=== PATIENT | female | born 1960 | race African-American/Black ===

== ENCOUNTER → 2017-08-27 14:53 | Outpatient (CLI) | payer OTHER, SELFPAY ==
[2017-08-28 10:06] LABS: Vitamin B12 > 2000 pg/mL (211-911)
== END ==
PROVIDERS: Family Provider Nurse Practitioner; PCP Nurse Practitioner; Visit Provider Nurse Practitioner
DX: Z13.220 Encounter for screening for lipoid disorders (principal); D64.9 Anemia, unspecified; E55.9 Vitamin D deficiency, unspecified; E11.9 Type 2 diabetes mellitus without complications
CPT/HCPCS: 82607; 82746

== ENCOUNTER → 2017-08-27 16:02 | Outpatient (CLI) | payer OTHER, SELFPAY ==
--- NOTE | 2017-08-27 16:06 | HPBD_ITS ---
STUDY: DUAL ENERGY X-RAY ABSORPTIOMETRY / DXA REASON FOR EXAM: Female, 57 years old. The patient is postmenopausal. No loss of height. TECHNIQUE: Bone Mineral Density (BMD) measurements of lumbar spine and bilateral hips were obtained. COMPARISON: None. FINDINGS: Lumbar Spine (L1-L4): g/cm2 (1.410) / T-score (1.9) / Z-score (2.1) Findings are suggestive of normal bone density with a low fracture risk. Left Femur Total: g/cm2 (1.135) / T-score (1.0) / Z-score (0.7) Left Femoral Neck: g/cm2 (1.002) / T-score (-0.3) / Z-score (-0.1) Right Femur Total: g/cm2 (1.087) / T-score (0.6) / Z-score (0.4) Right Femoral Neck: g/cm2 (0.966) / T-score (-0.5) / Z-score (-0.4) HPBD/Dexa Bone Density Study (HP) IMPRESSION: The patient is considered normal as outlined below according to World [employer] Organization (WHO) criteria with a low fracture risk. Reference Information: The T-score is the number of standard deviations above or below the standard which is normal for young adults at their peak bone mineral density. The World Health Organization (WHO) interprets the T-scores as follows: Above -1 Normal bone density Between -1 and -2.5 Osteopenia Equal to / or below -2.5 Osteoporosis As a practical clinical guideline, osteopenia may be graded as follows: Mild -1 through -1.5 Moderate -1.6 through -2.0 Severe -2.1 through -2.4 The Z-score is the number of standard deviations above or below age-matched controls. A Z-score of less than -1.5 would be considered abnormal. References: 1. NIH Osteoporosis and Related Bone Diseases http://www.osteo.org 2. International Society for Clinical Densitometry http://www.iscd.org 3. National Osteoporosis Foundation http://www.nof.org Electronically Signed: Mickey Winchester MD at 10:42 EST Tel [phone], Service support ,
== END ==
PROVIDERS: Family Provider Nurse Practitioner; PCP Nurse Practitioner; Visit Provider Nurse Practitioner
DX: Z78.0 Asymptomatic menopausal state (principal)
CPT/HCPCS: 77080

== ENCOUNTER → 2018-02-14 08:38 | Outpatient (CLI) | payer OTHER, SELFPAY | PROVIDERS: Family Provider Nurse Practitioner; PCP Nurse Practitioner; Visit Provider Nurse Practitioner | DX: Z12.31 Encounter for screening mammogram for malignant neoplasm of breast (principal) | CPT/HCPCS: 77063; 77067 ==

== ENCOUNTER → 2018-05-09 12:00 | Outpatient (CLI) | payer OTHER, SELFPAY ==
--- NOTE | 2018-05-09 12:05 | RAD_ITS ---
STUDY: X-RAY - ABDOMEN/PELVIS REASON FOR EXAM: Female, 57 years old. 5 day history of diarrhea and abdominal bloating. TECHNIQUE: Two AP supine views of the abdomen and pelvis. COMPARISON: None. FINDINGS: Normal visualized lung bases. There is an abundance of fecal material throughout the colon. The visualized liver, spleen and kidneys are grossly normal in size and morphology. There are calcified phleboliths in the pelvis. Normal visualized osseous structures. RAD/Abdomen Single View IMPRESSION: Large amount of material is seen in the colon. Multiple calcified phleboliths within the pelvis. Electronically Signed: Mickey Winchester MD at 12:27 EST Tel [phone], Service support ,
== END ==
PROVIDERS: Family Provider Nurse Practitioner; PCP Nurse Practitioner; Referring Provider Nurse Practitioner; Visit Provider Nurse Practitioner
DX: R10.9 Unspecified abdominal pain (principal)
CPT/HCPCS: 74018

== ENCOUNTER → 2018-09-18 10:58 | Outpatient (CLI) | payer OTHER, SELFPAY ==
[2018-09-18 11:26] LABS: Vitamin B12 > 2000 pg/mL (211-911)
== END ==
PROVIDERS: Visit Provider Nurse Practitioner
DX: E11.9 Type 2 diabetes mellitus without complications (principal); E53.8 Deficiency of other specified B group vitamins; K58.9 Irritable bowel syndrome, unspecified
CPT/HCPCS: 82607; 82746; 83735

== ENCOUNTER → 2018-11-11 14:18 | Outpatient (CLI) | payer OTHER, SELFPAY ==
[2018-11-11 14:37] LABS: Absolute Lymphocyte Count 2.51 X10^3/ul (0.83-4.51); Absolute Neutrophil Count 1.9 X10^3/uL (2.0-7.7); Basophil# 0.03 X10^3/uL; Basophil% 0.6 % (0-1); Eosinophil# 0.15 X10^3/uL; Eosinophils% 3.1 % (0-5); Hematocrit 35.9 % (37-47); Hemoglobin 12.1 g/dl (12.0-15.0); Lymphocyte # 2.51 X10^3/ul (4.0); Lymphocyte % 51.4 % (19-41); Mean Corp Hgb Conc 33.7 g/gl (32-36); Mean Corpuscular Hgb 29.9 pg (27.0-32.0); Mean Corpuscular Volume 88.6 fL (81-99); Mean Platelet Vol. 10.8 fl (6.2-12.0); Monocyte% 6.1 % (0-10); Neutrophil # 1.88 X10^3/uL (2.7-7.7); Neutrophil % 38.6 % (47-70); Platelet Count 199 K/mm3 (150-450); RBC Distribution Width CV 12.9 % (11.6-14.6); RBC Distribution Width SD 41.7 fl (35.1-43.9); Red Blood Count 4.05 M/mm3 (4.2-5.4); White Blood Count 4.9 K/mm3 (4.4-11.0)
[2018-11-11 14:39] LABS: POSITIVE COUNT NO; POSITIVE DIFFERENTIAL NO; POSITIVE MORPHOLOGY NO
== END ==
PROVIDERS: Family Provider Nurse Practitioner; PCP Nurse Practitioner; Referring Provider Nurse Practitioner; Visit Provider Nurse Practitioner
DX: D72.819 Decreased white blood cell count, unspecified (principal)
CPT/HCPCS: 36415; 85025

== ENCOUNTER → 2018-12-08 11:43 | Outpatient (CLI) | payer OTHER, SELFPAY ==
[2018-12-08 11:57] LABS: Erythrocyte Sedimentation Rate 10 mm/hr (0-30)
[2018-12-08 12:12] LABS: CRP < 2.90 mg/L (0.0-3.0)
[2018-12-09 13:30] LABS: ANTINUCLEAR ANTIBODIES DIRECT Negative (Negative)
== END ==
PROVIDERS: Family Provider Nurse Practitioner; PCP Nurse Practitioner
DX: D72.9 Disorder of white blood cells, unspecified (principal)
CPT/HCPCS: 85652; 86038; 86140

== ENCOUNTER → 2018-12-31 08:22 | Outpatient (CLI) | payer OTHER, SELFPAY ==
[2018-12-31 08:44] LABS: Absolute Lymphocyte Count 1.86 X10^3/ul (0.83-4.51); Absolute Neutrophil Count 1.5 X10^3/uL (2.0-7.7); Basophil# 0.03 X10^3/uL; Basophil% 0.8 % (0-1); Eosinophil# 0.15 X10^3/uL; Eosinophils% 3.9 % (0-5); Hematocrit 38.3 % (37-47); Hemoglobin 13.1 g/dl (12.0-15.0); Lymphocyte # 1.86 X10^3/ul (4.0); Lymphocyte % 48.1 % (19-41); Mean Corp Hgb Conc 34.2 g/gl (32-36); Mean Corpuscular Hgb 30.3 pg (27.0-32.0); Mean Corpuscular Volume 88.7 fL (81-99); Mean Platelet Vol. 11.8 fl (6.2-12.0); Monocyte# 0.31 X10^3/uL; Neutrophil # 1.52 X10^3/uL (2.7-7.7); Neutrophil % 39.2 % (47-70); Platelet Count 199 K/mm3 (150-450); RBC Distribution Width SD 41.4 fl (35.1-43.9); Red Blood Count 4.32 M/mm3 (4.2-5.4); White Blood Count 3.9 K/mm3 (4.4-11.0)
[2018-12-31 08:45] LABS: POSITIVE COUNT NO; POSITIVE DIFFERENTIAL NO; POSITIVE MORPHOLOGY NO
[2018-12-31 09:02] LABS: Hemoglobin A1c 8.7 % (4.2-6.3)
[2018-12-31 09:07] LABS: AST(SGOT) 28 U/L (15-37); Alanine Aminotransfer ALT/SGPT 54 U/L (13-56); Albumin, Serum 4.1 g/dL (3.2-5.0); Alkaline Phosphatase 107 U/L (45-117); Amylase 52 U/L (25-115); Anion Gap 11 (5-15); BUN 18 mg/dL (7-18); BUN/Creat Ratio 17.6 RATIO (10-20); Calcium,Total 9.2 mg/dL (8.5-10.1); Chloride 105 mmol/L (98-107); Cholesterol 204 mg/dL (200); Creatinine, Serum 1.02 mg/dL (0.55-1.02); EST Glomerular Filtration Rate 59 mL/min (>60); Est Glom Filt Rate - Afr Amer 72 mL/min (>60); Globulin 4.2 g/dL (2.2-4.2); Glucose 219 mg/dL (74-106); High Density Lipoprotein 41 mg/dL; Lipase 117 U/L (73-393); Potassium 4.1 mmol/L (3.5-5.1); Protein, Total 8.3 g/dL (6.4-8.2); Sodium Level 141 mmol/L (136-145); Thyroid Stim Hormone (TSH) 1.71 uIU/mL (0.358-3.74); Triglycerides 157 mg/dL; Very Low Density Lipoprotein 31 mg/dL (5-40)
[2018-12-31 09:31] LABS: Microalbumin,Random Urine 10.2 mg/L (NO RANGE EST.)
== END ==
PROVIDERS: Family Provider Nurse Practitioner; PCP Nurse Practitioner
DX: E11.9 Type 2 diabetes mellitus without complications (principal); R10.84 Generalized abdominal pain
CPT/HCPCS: 36415; 80053; 80061; 82043; 82150; 82570; 83036; 83690; 84443; 85025

== ENCOUNTER → 2019-08-24 | Outpatient (CLI) | payer OTHER, SELFPAY ==
--- NOTE | 2019-08-24 07:18 | BI_ITS ---
MAMMOGRAPHY - BILATERAL SCREENING REASON FOR EXAM: Female, 59 years old. Routine annual screening examination. PERTINENT HISTORY: Family history of breast cancer BILATERAL DIGITAL MAMMOGRAM WITH TOMOSYNTHESIS: Mediolateraloblique and craniocaudal views demonstrate no evidence of dominant parenchymal masses. No cluster of microcalcifications or architectural distortion is seen. No evidence of skin thickening is identified. There has been no significant change since 02/14/2018. Breast Density: The breast tissue is extremely dense which may lower the sensitivity of mammography. CAD was used to assist in final assessment. IMPRESSION: NORMAL MAMMOGRAM BILATERALLY. FINAL ASSESSMENT: BIRAD 1 (NEGATIVE) YEARLY MAMMOGRAM RECOMMENDED Electronically Signed: Pedro Villanueva, at 16:56 EST Tel , Service support , BI/SCREEN MAMM (CAD) W/KRISTIAN ALLEN
== END | disposition home or self-care (01) ==
LOC: OPBI 07:17
PROVIDERS: PCP Nurse Practitioner; Referring Provider Nurse Practitioner; Visit Provider Nurse Practitioner
DX: Z12.31 Encounter for screening mammogram for malignant neoplasm of breast (principal)
CPT/HCPCS: 77063; 77067

== ENCOUNTER 2019-10-14 12:20 | Outpatient (RCR) | payer OTHER, SELFPAY | END 2019-10-29 23:59 | LOC: DC 12:20 | PROVIDERS: PCP Nurse Practitioner; Visit Provider Nurse Practitioner | DX: Z71.3 Dietary counseling and surveillance (principal); E11.65 Type 2 diabetes mellitus with hyperglycemia | CPT/HCPCS: 97802 ==

== ENCOUNTER 2019-11-17 17:24 | Outpatient (RCR) | payer OTHER, SELFPAY | END 2019-11-29 23:59 | LOC: DC 17:24 | PROVIDERS: PCP Nurse Practitioner; Visit Provider Nurse Practitioner | DX: Z71.3 Dietary counseling and surveillance (principal); E11.65 Type 2 diabetes mellitus with hyperglycemia | CPT/HCPCS: 97803 ==

== ENCOUNTER 2020-01-19 16:30 | Outpatient (RCR) | payer OTHER, SELFPAY | END 2020-01-29 23:59 | LOC: DC 16:30 | PROVIDERS: PCP Nurse Practitioner; Visit Provider Nurse Practitioner | DX: Z71.3 Dietary counseling and surveillance (principal); E11.65 Type 2 diabetes mellitus with hyperglycemia | CPT/HCPCS: 97803 ==

== ENCOUNTER 2020-02-17 16:24 | Outpatient (RCR) | payer OTHER, SELFPAY | END 2020-02-29 23:59 | LOC: DC 16:24 | PROVIDERS: PCP Nurse Practitioner; Visit Provider Nurse Practitioner | DX: Z71.3 Dietary counseling and surveillance (principal); E11.65 Type 2 diabetes mellitus with hyperglycemia | CPT/HCPCS: 97803 ==

== ENCOUNTER 2020-03-21 17:19 | Outpatient (RCR) | payer OTHER, SELFPAY | END 2020-03-30 23:59 | LOC: DC 17:19 | PROVIDERS: PCP Nurse Practitioner; Visit Provider Nurse Practitioner | DX: Z71.3 Dietary counseling and surveillance (principal); E11.65 Type 2 diabetes mellitus with hyperglycemia | CPT/HCPCS: 97803 ==

== ENCOUNTER 2020-05-16 16:03 | Outpatient (RCR) | payer OTHER, SELFPAY | END 2020-05-30 23:59 | LOC: DC 16:03 | PROVIDERS: PCP Nurse Practitioner; Visit Provider Nurse Practitioner | DX: Z71.3 Dietary counseling and surveillance (principal); E11.65 Type 2 diabetes mellitus with hyperglycemia | CPT/HCPCS: 97803 ==

== ENCOUNTER 2020-10-11 17:21 | Outpatient (RCR) | payer OTHER, SELFPAY ==
--- NOTE | 2020-10-11 18:16 | HP.PTEVAL_ITS ---
Patient's Visit Information ERIN KAMINSKI is a 60 year old F referred to Physical Therapy by YONG Renae with a diagnosis of LBP. Date of Evaluation: 10/11/20 Physical Therapist: Ramón Payne, DPT, OCS, CSCS - Visit Plan Duration: 1x in 3 weeks Plan: Pt is doing excellent today after taking antiinflammatories for the last week. She feels 90% better. We extensively reviewed body mechanics today whcih was likely the culprit. she would like to f/u in 3 weeks once off meds to ensure still feeling good. Will work on focussing on body mechanics in the meantime and decide if she wants a strengthening ex regimen for the core which will be taught to her at that time if desired and feeling good. She will call prior to that if her pain returns. - Subjective My back hurt. Was on knees leaning into shower to wash grandchild's hair. [place] awkward position adn then it hurt the next day. Snce then hard to stand up in the morning. That was 6 + months ago. Has gotten anti inflammtories and sent for PT. Anti inflammotries have really helped as she can out of bed. They have helped 90% . Rmaining 10% is awkward feeling at times. Sleeping OK,. Activities at home are normal. 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 Pain is middle LB, no leg symptoms. Denies numbness and tingly - Pain LBP Pain Intensity (Out of 10): 0 Pain Intensity Range: 0, 2 - Objective Walks upright and normal today without pain or antalgia. trasnfers quickly adn without difficulty. Steps reciprocally without railing or pain. reflexes 0/3 patella adn achilles B. sensation LE WNL to gross light touch. B. Strength LE 4+/5 withotu myotomal problems. Posure is upright and unremarkable. LB AROM ext and SB are full and withotu pain. Flexion is not limited and painfree, HS are mildly tight. Seems like biggest problem was body mechanics which was extensively reviewed with patient today. No tenderness in lumbar paraspinals today or glutts. anti inflammtory seems to have done its job. - Goals Goal 1:: maintain painfree LB for 3 weeks and fully 100% better without meds. Goal Time Frame: 2-4 Weeks - Rehabilitation Potential Physical Therapy Diagnosis: LBP likely musclar vs disc but feelign good today Rehabilitation Potential: Good - Anticipated Interventions Patient/Client Instruction: Educate patient on: Condition, Risk Factors For the Purpose of:: To decrease pain Therapeutic Exercise to Include: Strength training, Dynamic Lumbar Stabilization For the Purpose of:: To increase tolerance to activity/condition/position Thank you for the opportunity to evaluate your patient. For Medicare and Medicare HMO plans, please review the plan of care and approve it. It will need to be FAXED BACK to us at [phone] for Medicare purposes. For Medicare only, by signing this I certify the plan of care. Please let me know if there are questions or concerns regarding this plan of care. Physician Signature: Date:
--- NOTE | 2020-12-08 16:36 | HP.PT.NRP ---
ERIN KAMINSKI was seen in my office for initial evaluation on 10/11/20. The following Plan of Care was established for this patient: Initial Duration: 1x in 3 weeks Patient/Client Instruction: Educate patient on: Condition, Risk Factors For the Purpose of:: To decrease pain Therapeutic Exercise to Include: Strength training, Dynamic Lumbar Stabilization For the Purpose of:: To increase tolerance to activity/condition/position This patient was last seen in our office 10/11/20. Pertinent comments regarding their Physical therapy will appear below: Pt seen one visit and was doing very well. We spent time educating her adn she was to f/u in three weeks to ensure progression but did not schedule nor attend. At this point, it has been nearly two months adn I will disocntinue due to nonattendance. At this point I will be discontinuing this patient from physical therapy. I would be happy to see this patient again in the future if found appropriate by the physician. Thank you! Raómn Payne, DPT, OCS, CSCS
== END 2020-10-11 19:00 | disposition home or self-care (01) ==
LOC: PT 17:21
PROVIDERS: PCP Nurse Practitioner; Referring Provider Nurse Practitioner; Visit Provider Nurse Practitioner
DX: M54.9 Dorsalgia, unspecified (principal)
CPT/HCPCS: 97161

== ENCOUNTER 2021-08-31 15:25 | Outpatient (CLI) | payer OTHER, SELFPAY ==
--- NOTE | 2021-08-31 15:27 | BI_ITS ---
MAMMOGRAPHY - BILATERAL SCREENING REASON FOR EXAM: Female, 61 years old. Routine annual screening examination. PERTINENT HISTORY: Non-contributory. TECHNIQUE: Digital bilateral breast kristian (3D mammographic acquisition) in the CC and MLO projections. 2-D mediolateral oblique (MLO) and craniocaudad (CC) views of both breasts were obtained. CAD: Full Field Digital Mammography with Computer Added Detection was performed. COMPARISON: Comparison is made with prior study dated 08/24/2019 and 02/14/2018. FINDINGS: Breast Composition: The breasts are extremely dense, which lowers the sensitivity of mammography. There are no dominant masses or suspicious calcifications. Stable small benign-appearing bilateral axillary lymph nodes. No other significant abnormalities are identified. There has been no significant change since the prior study. BI/SCRN MAMM (CAD)W/KRISTIAN BILAT IMPRESSION: Stable bilateral screening mammogram. Yearly follow-up mammogram recommended. (A) ASSESSMENT CATEGORY: BIRADS Category 2: Benign. A letter regarding these results will be sent to the patient by the facility within 30 days. Approximately 10% of breast cancers are not detected by mammography. A normal mammogram should not delay biopsy of a clinically suspicious abnormality. [id number] Electronically Signed: Mickey Winchester MD at 8:59 EST ,
--- NOTE | 2021-08-31 15:29 | BD_ITS ---
STUDY: DUAL ENERGY X-RAY ABSORPTIOMETRY / DXA REASON FOR EXAM: Female, 61 years old. Z78.0. Patient is postmenopausal. TECHNIQUE: Bone Mineral Density (BMD) measurements of lumbar spine and bilateral hips were obtained. COMPARISON: Comparison is made with prior study of 08/27/2017. FINDINGS: Lumbar Spine (L1-L4): g/cm2 (1.086) / T-score (-0.6) / Z-score (1.0) Findings are suggestive of normal bone density with a low fracture risk. Left Femur Total: g/cm2 (0.973) / T-score (-0.4) / Z-score (0.4) Left Femoral Neck: g/cm2 (0.802) / T-score (-1.1) / Z-score (0.0) Right Femur Total: g/cm2 (0.911) / T-score (-0.8) / Z-score (0.0) Right Femoral Neck: g/cm2 (0.748) / T-score (-1.4) / Z-score (-0.4) The T-Scores on the most recent prior examination were: Lumbar Spine (L1-L4): There has been worsening of bone density since the previous examination. Left Femur Total: which represents a worsening of 8.7%. Right Femur Total: which represents a worsening of 10.5%. BD/Dexa Bone Density Study IMPRESSION: The patient is considered osteopenic as outlined below according to World Abhijit Organization (WHO) criteria with a low fracture risk. There has been worsening of bone density since the previous examination. Reference Information: The T-score is the number of standard deviations above or below the standard which is normal for young adults at their peak bone mineral density. The World Health Organization (WHO) interprets the T-scores as follows: Above -1 Normal bone density Between -1 and -2.5 Osteopenia Equal to / or below -2.5 Osteoporosis As a practical clinical guideline, osteopenia may be graded as follows: Mild -1 through -1.5 Moderate -1.6 through -2.0 Severe -2.1 through -2.4 The Z-score is the number of standard deviations above or below age-matched controls. A Z-score of less than -1.5 would be considered abnormal. References: 1. NIH Osteoporosis and Related Bone Diseases www osteo.org 2. International Society for Clinical Densitometry www iscd.org 3. National Osteoporosis Foundation www nof.org Electronically Signed: Mickey Winchester MD at 13:58 EST ,
== END 2021-08-31 23:59 | disposition home or self-care (01) ==
LOC: OPBD 15:26
PROVIDERS: PCP Nurse Practitioner; Visit Provider Nurse Practitioner
DX: Z12.31 Encounter for screening mammogram for malignant neoplasm of breast (principal); Z78.0 Asymptomatic menopausal state
CPT/HCPCS: 77063; 77067; 77080

== ENCOUNTER → 2023-11-04 | Outpatient (CLI) | payer OTHER, SELFPAY ==
--- NOTE | 2023-11-04 14:57 | US_ITS ---
STUDY: ULTRASOUND OF THE FEMALE PELVIS - COMPLETE REASON FOR EXAM: Female, 63 years old. SUPRAPUBIC PAIN LMP: Patient is status post hysterectomy. TECHNIQUE: Transabdominal and Transvaginal TECHNICAL QUALITY: Adequate. COMPARISON: None. FINDINGS: The patient is status post hysterectomy. The right ovary is visualized. The right ovary measures 2.7 cm x 2 cm x 1.7 cm. There is no right ovarian cyst or ovarian mass. There is no visualized right adnexal mass or complex lesion. There is normal arterial and normal venous vascularity. The left ovary is visualized. The left ovary measures 2.3 cm x 2.5 cm x 2.7 cm. A dominant follicle is seen within the ovary. This measures 1.7 cm x 1.8 cm. There is no visualized left adnexal mass or complex lesion. There is normal arterial and normal venous vascularity. There is no fluid in the cul-de-sac. The pre void volume of the bladder was 30 ml. US/Pelvic w/ Transvaginal IMPRESSION: Status post hysterectomy. A dominant follicle is seen in the left ovary measuring 1.7 cm x 1.8 cm. Follow-up recommended. Electronically Signed: Mickey Winchester MD at 14:48 EDT ,
--- NOTE | 2023-11-04 15:36 | RAD_ITS ---
EXAM: XR ABDOMEN, 1 VIEW CLINICAL INDICATION: SUPRAPUBIC PAIN TECHNIQUE: Frontal supine view of the abdomen/pelvis. COMPARISON: No relevant prior studies available. FINDINGS: LOWER THORAX: No acute pathology. GASTROINTESTINAL TRACT: Mild gas and stool in the colon. No visible gas in the rectum. No dilated small bowel loops. ORGANS: Unremarkable as visualized. No organomegaly. No abnormal calcifications. BONES/JOINTS: No acute pathology. SOFT TISSUES: No acute pathology. VASCULATURE: Multiple phleboliths in the pelvis. RAD/Abdomen Single View IMPRESSION: No acute findings. Electronically Signed: Vania Torres MD at 6:24 EDT ,
== END | disposition home or self-care (01) ==
PROVIDERS: PCP Nurse Practitioner Family; Referring Provider Nurse Practitioner Family; Visit Provider Nurse Practitioner Family
DX: R10.2 Pelvic and perineal pain (principal); Z90.710 Acquired absence of both cervix and uterus
CPT/HCPCS: 74018; 76830; 76856